=== PATIENT | female | born 1960 | race Caucasian/White ===

== ENCOUNTER 2019-04-15 08:37 | Inpatient (IN) | payer OTHER ==
[~2019-04-15] VITALS: Ht 167.6 cm; Wt 44.9 kg
[2019-04-15 08:44] VITALS: Ht 167.6 cm; Wt 44.9 kg
--- NOTE | 2019-04-15 09:11 | NUR ---
PT HERE TO ED WITH C/O LLQ G-TUBE DISLODGEMENT APPROX 30 MIN MOUNTER AUTOMATIC, PT REPORTS "I HAVE IT BECAUSE I DONT DRAIN GOOD SO I HAVE A BAG ATTACHED TO THE G TUBE TO DRAIN IT AND WHEN I WAS LEANING OVER THE TOILET TO DO THAT IT FELL OUT BUT I GET FED THROUGH MY PICC LINE" PT DENIES ANY PAIN, PT AAOX4, PT AFEBRILE, PT AFEBRILE AT THIS TIME, LLQ STOMA NOTED, NO S/S INFECTION NOTED, NO ACTIVE BLEEDING NOTED, PT ALSO NOTED TO HAVE RUE PICC LINE AND COLOSTOMY BAG, PT IN NAD AWAITING MSE
--- NOTE | 2019-04-15 10:35 | NUR ---
PT RESTING IN POSITION OF COMFORT, RESPIRATIONS EVEN AND UNLABORED, VSS
--- NOTE | 2019-04-15 11:00 | NUR ---
PT IN NAD AWAITING GI TUBE PLACEMENT, VSS, WILL CONTINUE TO MONITOR
--- NOTE | 2019-04-15 12:25 | NUR ---
MD MANUEL AT BEDSIDE FOR GI TUBE PROCEDURE
--- NOTE | 2019-04-15 12:35 | NUR ---
PER MD MANUEL "WHILE I WAS ATTEMPTING TO PERFORM THE GI TUBE PROCEDURE SHE WAS COMPLAINING OF HER HEART RACING AND HAS SAID THAT HAS HAPPENED IN THE PAST BEFORE AND THEN NOTICED HER HR THROUGH THE ROOF" IV ADMIN TO RAC 22G, NS 1L INFUSING WIDE OPEN PER MD MANUEL VERBAL ORDER, PT PLACED ON 2L O2 VIA NC, PER MD MANUEL AFIB ON CM. CARDIZEM 10MG IVP ADMIN TO RAC PER MD MANUEL VERBAL ORDER MD MANUEL AT BEDSIDE
--- NOTE | 2019-04-15 12:46 | NUR ---
LAB AT BEDSIDE FOR BLOOD DRAW. DR MANUEL AT BEDSIDE
--- NOTE | 2019-04-15 12:49 | NUR ---
EKG IN PROGRESS
--- NOTE | 2019-04-15 13:01 | NUR ---
PT REPORTS "I FEEL A LOT BETTER" PT NSR ON CM, RESPIRATIONS EVEN AND UNLABORED, VSS, AT BEDSIDE, CALL LIGHT WITHIN REACH, WILL CONTINUE TO MONITOR
[2019-04-15 13:30] LABS: BASOPHIL % 0.3 % (0-2); PLATELET COUNT 167 x10^3mcL (130-400); RED CELL DISTRIBUTION WIDTH 18.3 % (11.5-14.5)
[2019-04-15] MEDS ORDERED: LOVENOX30 MG/0.3 SC (13:37)
[2019-04-15 13:52] LABS: CALCIUM 8.5 mg/dL (8.5-10.1); CARBON DIOXIDE 27.6 mmol/L (21-32); CREATININE SERUM 1.3 mg/dL (0.6-1.0); POTASSIUM SERUM 4.4 mmol/L (3.5-5.1); T3 TOTAL 0.89 ng/mL
[2019-04-15 13:57] LABS: FREE T4 1.04 ng/dL (0.76-1.46); FREE THYROXINE INDEX 2.1 ug/dL (1.4-4.5); T4(THYROXINE) 5.8 ug/dL (4.7-13.3)
[2019-04-15 14:01] LABS: ALBUMIN 1.9 g/dL (3.4-5.0); BILIRUBIN TOTAL 0.3 mg/dL (0.20-1.00); CHOLESTEROL/HDL RATIO 3.6; TOTAL PROTEIN, SERUM 6.3 g/dL (6.4-8.2)
--- NOTE | 2019-04-15 14:04 | NUR ---
PT ACTIVELY VOMITING IN EMESIS BAG, APPROX 500ML YELLOW EMESIS. DR. MANUEL MADE AWARE. PT REFUSING ZOFRAN, DUE TO "I HAVE TO VOMIT THIS UP, IT HAS NO WHERE TO GO". VSS. RESP E/U. WILL CONTINUE TO MONITOR".
--- NOTE | 2019-04-15 14:38 | NUR ---
REPORT GIVEN TO MICHEAL VILLALOBOS, TO RESUME CARE OF PT UPON ADMISSION
--- NOTE | 2019-04-15 14:40 | NUR ---
DR. MONTOYA AT BEDSIDE SPEAKING WITH PT
--- NOTE | 2019-04-15 14:50 | NUR ---
PER MD MONTOYA "I THINK THE STOMA IS ALREADY CLOSED BUT SINCE SHE IS ON LOVENOZ WE WILL WAIT TIL TOMORROW TO TRY AND GET THE G-TUBE IN" MICHEAL VILLALOBOS, TELE, MADE AWARE
[2019-04-15 15:47] LABS: UA SPECIFIC GRAVITY 1.015 (1.005-1.035); microscopic required? YES; urine erythrocyte NEGATIVE (NEGATIVE)
[2019-04-15 16:27] VITALS: BP 127/86
--- NOTE | 2019-04-15 16:46 | NUR ---
RECEIVED PT FROM ER, PT ADMIT FOR PAQRAXYSMAL A.FIB W/RVR. G TUBE DISPLACEMENT. PT IS A/O X4, VERBAL RESPONSIVE. LUNG SOUND CLEAR BILATERAL, NO COUGH, NO SOB. PT IS ON 2L/MIN O2 VIA NC. PO2 100% PT IS ON TELE 21. NSR AT THIS MOMENT. DENY ANY CHEST PAIN OR DISCOMFORT. BOWEL SOUND PRESENT ALL 4 QUADRANTS, COLOSTOMY BAG AT LEFT ABD. OLD GTUBE PLACE WAS COVER WITH DRY DRESSING. NO DRAINAGE NOTED. PICC LINE AT RIGHT UPPER [facility]. PT HAS HOME TPN CONTINUE INFUSED AT THIS MOMENT. PT STATE SHE CAN'T STOP TPN. SHE KNOW ITS GONNA TAKE A WHILE HOSPITAL TO GET HER TPN SO SHE CONTINUE USE HER OWN AT THIS MOMENT. IV AT LEFT AC, NO LEAKING, NO INFILTRATION. ALL ADLS ASSIST. ALL NEED MET, CALL LIGHT IN REACH, WILL CONTINUE TO MONITOR.
--- NOTE | 2019-04-15 16:50 | NUR ---
RECEIVED PT ,RESOURCE NURSE.AAO X4.DENIES ANY PAIN/DISCOMFORT.LUNGS CLEAR.ON SR ON THE MONITOR.COLOSTOMY TO L QUADRANT.TEDDY WITH PICC LINE GOING TPN FROM HOME.BUE WITH BRUISING.CALL LIGHT WITHIN REACH.INSTRUCTED TO CALL FOR ANY PAIN/DISCOMFORT.WILL CONTINUE TO MONITOR PT.
--- NOTE | 2019-04-15 18:29 | NUR ---
NO SIGNIFICANT CHANGE NOTED.WILL ENDORSE TO NEXT SHIFT.
--- NOTE | 2019-04-15 19:10 | NUR ---
REC'D PT FROM DAY NURSE. PT RESTING IN BED. AAOX4, SPEECH CLEAR, FOLLOWS COMMANDS. TELE 21. DENIES CP, DIZZINESS, OR PALPITATIONS. DENIES RESP DISTRESS OR SOB. BREATHING EVEN/UNLABORED ON RA. NO EDEMA NOTED. ABD SOFT/NONTENDER. C/O NAUSEA, DECLINED ZOFRAN. STATES SHE WOULD RATHER VOMIT. HOB ELEVATED. PT HAS EMESIS BAG. L ABD COLOSTOMY WITH LOOSE GREEN STOOL. MID UPPER ABD ISLAND DRESSING. VOIDING FREELY. MILD GEN WEAKNESS. AMBULATORY. BUE ECCHYMOSIS. IV TO RAC FLUSHED AND PATENT. TEDDY PICC IN PLACE. PT'S SON TO BRING TPN FROM HOME. CALL LIGHT WITHIN REACH, BED AT LOWEST POSITION. WILL CONTINUE TO MONITOR.
--- NOTE | 2019-04-15 19:43 | NUR ---
SPOKE TO DR. MCNAMARA. MADE AWARE NEED ORDER TO USE PICC AND ACCUCHECK ONCE PT'S SON BRINGS TPN.
--- NOTE | 2019-04-15 20:41 | NUR ---
SON AT BEDSIDE WITH HOME TPN AND 2L SALINE BAG. DR. MCNAMARA MADE AWARE. STATED WILL COME INTO THE ROOM AND LOOK AT MEDS WHEN NOT BUSY.
--- NOTE | 2019-04-15 21:32 | NUR ---
BROUGHT HOME TPN DOWN TO PHARMACY FOR VERIFICATION. GINGER, PHARMACIST, UNABLE TO MAKE LABEL AT THIS TIME. STATED OKAY TO GIVE WITH DOCTOR ORDER. RECOMMENDED TPN TO INFUSE OVER 24 HOURS INSTEAD OF [address] HOME LABEL[address] DR. MCNAMARA MADE AWARE. REC'D ORDER OKAY TO INITIATE HOME TPN TO RUN OVER 24 HOURS. ALSO WILL BE GIVE MAINTENANCE IVF NS @ 50 ML/HR PER ORDER RATHER THAN HOME 2L NS @ 200 ML/HR.
[2019-04-15 21:47] VITALS: BP 111/72
--- NOTE | 2019-04-15 22:27 | NUR ---
PT VOMITED 300 ML GREEN FLUID. DENIES NAUSEA AT THIS TIME. CONSENT OBTAINED TO RECEIVE RECORDS FROM [facility] CONSENT FOR EGD WITH PEG PLACEMENT.
--- NOTE | 2019-04-16 02:05 | NUR ---
PT RESTING IN BED WITH EYES CLOSED. NO SIGNS OF DISTRESS NOTED. BREATHING EVEN/UNLABORED ON RA. CALL LIGHT WITHIN REACH, BED AT LOWEST POSITION. WILL CONTINUE TO MONITOR.
[2019-04-16 05:43] VITALS: BP 109/71
--- NOTE | 2019-04-16 06:40 | NUR ---
PT AWAKE AND RESTING IN BED. LAYING ON R SIDE. REPORTS HAVING ANOTHER EMESIS THIS MORNING WHEN SHE WAS IN THE RESTROOM. BILIOUS PER PT. STILL REPORTS SOME NAUSEA BUT AGAIN DEFERRED ANY ANTIEMETICS. DENIES PAIN. POSS EGD WITH PEG PLACEMENT TODAY. PENDING CARDIOLOGY CONSULT. TPN INFUSING @ 90 ML/HR. PT NPO. CHECKLIST IN PROGRESS. WILL ENDORSE TO DAY NURSE.
--- NOTE | 2019-04-16 07:05 | NUR ---
RECEIVED PT FROM NIGHT RN. PT AAOX4. RES E/U. LUNG SOUNDS CLEAR ON ROOM AIR. NO SOB. TELE MONITOR 21 SHOWING SR, HR IN 90'S. DENIES CHEST PAIN/PRESSURE. PERIPHERAL PULSES PALPABLE W/ NO EDEMA. C/O NAUSEA BUT REFUSED ZOFRAN PER EMAR. L ABDOMINAL COLOSTOMY W/ GREEN STOOL. MID UPPER ABD ISLAND DRESSING, CDI. BUE ECCHYMOSIS NOTED. IV SITE TO R AC PATENT W/ NO SIGNS OF INFILTRATION. TEDDY PICC INFUSING TPN AT 90ML/HR W/ NO SIGNS OF INFITLRATION. CALL LIGHT WITHIN REACH, BED IN LOWEST POSITIN. WILL CONTINUE TO MONITOR
[2019-04-16 07:24] LABS: BASOPHIL % 0.3 % (0-2); PLATELET COUNT 190 x10^3mcL (130-400)
[2019-04-16 07:25] LABS: CALCIUM 9.8 mg/dL (8.5-10.1); CARBON DIOXIDE 31.5 mmol/L (21-32); CREATININE SERUM 1.4 mg/dL (0.6-1.0); MAGNESIUM 2.3 mg/dL (1.8-2.4); POTASSIUM SERUM 4.1 mmol/L (3.5-5.1)
[2019-04-16 07:59] LABS: RED CELL DISTRIBUTION WIDTH 18.1 % (11.5-14.5)
[2019-04-16 08:57] VITALS: BP 120/79
--- NOTE | 2019-04-16 09:15 | NUR ---
AT 0910 - GAVE REPORT TO GI RN. CONSENT FOR MODERATE ANESTHESIA SIGNED. CHECKLIST DONE. TELE MONITOR REMOVED. AT 0915 - PT WENT DOWN TO GI FOR PROCEDURE VIA MELINARJEROME ACCOMPANIED BY GI RN AND TECH.
--- NOTE | 2019-04-16 09:15 | NUR ---
GAVE REPORT TO GI RN. CONSENT FOR MODERATE ANESTHESIA IS SIGNED. CHECKLIST WAS DONE.
--- NOTE | 2019-04-16 10:35 | NUR ---
PT CAME BACK FROM GI PROCEDURE S/P GTUBE PLACEMENT. NO NEW SITE. PT WAS ALERT AND NON DROWSY. DENIES OF ANY DISCOMFORT. VSS. BP 104/71, HR 89, RR 12, 100%, TEMP 96.8.
[2019-04-16 12:28] VITALS: BP 106/71
--- NOTE | 2019-04-16 13:00 | NUR ---
CALLED TO THE SON ALYSIA AND VERIFY RE; PICC THE PATIENT HAS. HE STATED THAT IT WAS DONE AT [facility] AND HE GAVE THE PHONE NO.AND PERSON IN CHARGE. CALLED TO [facility] AND SPOKE W/ JM TEL.[phone] AND CONFIRMING THAT IT WAS DONE AT [facility] ON 02/28/19 AND WAS PICC LINE.TOLD HIM THE RESULTS OF CXR AND HE STATED THAT THE PICC LINE MOVED AND NEEDS TO BE CHANGED CAUSE SHE'S RECEIVING TPN. CALLED TO AND MADE AWARE OF THE ABOVE AND W/ ORDER TO INSERT NEW PICC LINE. 1328 CALLED TO PICC LINE SERVICE AND INFORMED OF THE ORDER.SHE STATED THAT PICC LINE NURSE WILL CALL. 1334 WALTER CALLED AND HE STATED HE'LL BE HERE IN HALF TO AN HOUR.
--- NOTE | 2019-04-16 14:20 | NUR ---
PICC LINE RN AT BEDSIDE FOR REINSERTION OF PICC LINE TO TEDDY.
--- NOTE | 2019-04-16 15:30 | NUR ---
CXR AT BEDSIDE FOR PICC LINE VERIFICATION.
--- NOTE | 2019-04-16 16:14 | NUR ---
PT C/O 09/17 ABDOMINAL PAIN. GIVEN TYLENOL PER EMAR. ALSO, RESUMED TPN AT 60 ML/HR. WILL CONTINUE TO MONITOR.
[2019-04-16 16:52] VITALS: BP 108/72
--- NOTE | 2019-04-16 17:58 | NUR ---
PT IS REQUESTING IF SHE CAN DRINK WATER. SPOKE WITH DR SOLORZANO AND SHE APPROVED.
--- NOTE | 2019-04-16 18:44 | NUR ---
PT RESTING IN BED WITH NO APPARENT DISTRESS. NO SIGNIFICANT CHANGES NOTED. FAMILY AT BEDSIDE. BED IN LOWEST POSITION, CALL LIGHT WITHIN REACH. ALL NEEDS MET AND CONCERNS ADDRESSED. WILL ENDORSE CARE TO NEXT SHIFT.
--- NOTE | 2019-04-16 19:20 | NUR ---
REC'D PT FROM DAY NURSE. PT RESTING IN BED. AAOX4, SPEECH CLEAR, FOLLOWS COMMANDS. TELE 21. DENIES CP, DIZZINESS, OR PALPITATIONS. DENIES RESP DISTRESS OR SOB. BREATHING EVEN/UNLABORED ON RA. NO EDEMA NOTED. ABD SOFT/FLAT. DENIES ABD PAIN, TENDERNESS, OR N/V. L ABD COLOSTOMY WITH LOOSE GREEN STOOL. MID UPPER PEG DRAINING LIGHT GREEN FLUID TO COLLECTION BAG TO GRAVITY. AMBULATORY. BUE ECCHYMOSIS. IV TO RAC FLUSHED AND PATENT. TEDDY PICC PATENT AND INFUSING TPN. OTHER PICC PORT FLUSHED AND PATENT. SITES WNL. CALL LIGHT WITHIN REACH, BED AT LOWEST POSITION. WILL CONTINUE TO MONITOR.
[2019-04-16 20:41] VITALS: BP 105/72
--- NOTE | 2019-04-16 22:00 | NUR ---
SPOKE TO GINGER, PHARMACIST. CONFIRMED OK TO GIVE TPN (WITH HEPARIN IN IT) CONCURRENTLY WITH LOVENOX. PHARM STATED DR. MCNAMARA ALSO AWARE.
--- NOTE | 2019-04-17 00:30 | NUR ---
PT RESTING IN BED WITH EYES CLOSED. LAYING ON R SIDE. BREATHING EVEN/UNLABORED ON RA. PEG DRAINING GREEN FLUID TO GRAVITY. CALL LIGHT WITHIN REACH, BED AT LOWEST POSITION. WILL CONTINUE TO MONITOR.
[2019-04-17 04:52] VITALS: BP 103/69
--- NOTE | 2019-04-17 05:25 | NUR ---
PT AWAKE AND RESTING IN BED. DENIES ANY PAIN OR NAUSEA. PEG TO [place] PORT DISLODGED. GREEN DRAINAGE NOTED ON GOWN AND BED. PT CLEANED, CHG WIPES PROVIDED, GOWN AND LINENS CHANGED. 700 ML BILIOUS DRAINAGE IN COLLECTION BAG. TPN INFUSING TO PICC @ 60 ML/HR. CALL LIGHT WITHIN REACH, BED AT LOWEST POSITION.
[2019-04-17 07:04] LABS: BASOPHIL % 0.3 % (0-2); PLATELET COUNT 195 x10^3mcL (130-400)
[2019-04-17 07:11] LABS: CALCIUM 9.2 mg/dL (8.5-10.1); CARBON DIOXIDE 33.6 mmol/L (21-32); CREATININE SERUM 1.6 mg/dL (0.6-1.0); MAGNESIUM 2.1 mg/dL (1.8-2.4); PHOSPHOROUS 4.7 mg/dL (2.5-4.9); POTASSIUM SERUM 4.1 mmol/L (3.5-5.1)
[2019-04-17 07:13] LABS: RED CELL DISTRIBUTION WIDTH 18.3 % (11.5-14.5)
[2019-04-17 09:07] VITALS: BP 122/81
--- NOTE | 2019-04-17 09:20 | NUR ---
PT RESTING IN BED WATCHING TV. NO COMPLAINTS AT THIS TIME. PEG DRAINING GREEN FLUID TO GRAVITY. DENIES N/V. WAITING TO SEE IF SHE WILL GET D/C'D TODAY. PT HAS AN APPOINTMENT AT [facility] THIS AFTERNOON.
[2019-04-17 10:23] VITALS: BP 122/81
--- NOTE | 2019-04-17 11:00 | NUR ---
REC'D DISCHARGE ORDERS. TEACHING AND PAPERWORK SIGNED. PT TO F/U WITH PCP AND ONCOLOGIST WITHIN 10 DAYS AND TAKE MEDICATIONS ORDERED. PEG COLLECTION BAG CHANGED TO SMALLER BAG THAT ATTACHES TO THE THIGH. DRAINING GREEN FLUID TO GRAVITY. PEG SITE DRESSING CDI. NEW LARGER COLLECTION BAG GIVEN PER REQUEST. SON TO STRAPPER AND BUFFER THE PATIENT. ALL QUESTIONS AND CONCERNS ADDRESSED.
--- NOTE | 2019-04-17 11:45 | NUR ---
SON AT BEDSIDE. TELE AND [place] REMOVED. TPN DISCONTINUED. BS 128. NO COMPLAINTS AT THIS TIME. PT TAKEN DOWN VIA WC ACCOMPANIED BY SON AND RIDING TEACHER. ALL BELONGINGS WITH PT.
--- NOTE | 2019-04-21 08:08 | NUR ---
ECHOCARDIOGRAM NOT DONE-DISCHARGED
== END 2019-04-17 11:50 | disposition home health service (06) | DRG 326 ==
LOC: ED 08:37 → DU 13:26
PROVIDERS: Internal Medicine Gastroenterology; Specialist; ADMIT Internal Medicine
PROC: 0DR Gastrointestinal System, Replacement (ICD-10-PCS; principal; 2019-04-16 09:00)
DX: Z43.1 Encounter for attention to gastrostomy (principal); N17.0 Acute kidney failure with tubular necrosis; C56.9 Malignant neoplasm of unspecified ovary; E87.0 Hyperosmolality and hypernatremia; C79.9 Secondary malignant neoplasm of unspecified site; Z68.1 Body mass index [BMI] 19.9 or less, adult; I48.0 Paroxysmal atrial fibrillation; E87.8 Other disorders of electrolyte and fluid balance, not elsewhere classified; D63.0 Anemia in neoplastic disease; Z93.3 Colostomy status; Z86.718 Personal history of other venous thrombosis and embolism; Z79.01 Long term (current) use of anticoagulants
CPT/HCPCS: 43235; 82962; 83880; 84439; G0378; J0153; J1200; J1610; J1650; J2250; J2310; J2405; J3010; J3490; J7131; Q0092

== ENCOUNTER 2019-10-19 09:01 | Emergency (ER) | payer OTHER ==
[~2019-10-19] VITALS: Ht 167.6 cm; Wt 52.2 kg
[~2019-10-19 09:01] MED LIST: LOVENOX30 MG/0.3 SC
[2019-10-19 09:04] VITALS: BP 95/61; Ht 167.6 cm; Wt 52.2 kg
== END 2019-10-19 10:55 | disposition left against medical advice (07) ==
LOC: ED 09:01
DX: R10.84 Generalized abdominal pain (principal); R11.2 Nausea with vomiting, unspecified; S50.12XA Contusion of left forearm, initial encounter; S50.11XA Contusion of right forearm, initial encounter; X58.XXXA Exposure to other specified factors, initial encounter; Y93.89 Activity, other specified; Y92.89 Other specified places as the place of occurrence of the external cause; Y99.8 Other external cause status
CPT/HCPCS: C9113; J2405